=== PATIENT | female | born 1955 | race Caucasian/White ===

== ENCOUNTER 2022-02-08 12:07 | Outpatient (CLI) | payer MEDICARE, OTHER ==
[2022-02-08 17:44] LABS: BASOPHILS # (AUTO) 0.1 10^3/uL (0.0-0.1); BASOPHILS % (AUTO) 1.1 %; EOSINOPHILS # (AUTO) 0.3 10^3/uL (0.0-0.7); EOSINOPHILS % (AUTO) 3.9 %; HCT - HEMATOCRIT 40.8 % (37.0-47.0); HGB - HEMOGLOBIN 12.8 g/dL (12.0-16.0); LYMPHOCYTES # (AUTO) 1.3 10^3/uL (1.5-3.5); LYMPHOCYTES % (AUTO) 19.8 %; MEAN CORPUSCULAR HEMOGLOBIN 29.8 pg (27.0-31.0); MEAN CORPUSCULAR HGB CONC 31.4 g/dL (32.0-36.0); MEAN CORPUSCULAR VOLUME 94.9 fL (81.0-99.0); MEAN PLATELET VOLUME 11.5 fL (7.9-10.8); MONOCYTES # (AUTO) 0.6 10^3/uL (0.0-1.0); MONOCYTES % (AUTO) 9.6 %; NEUTROPHILS # (AUTO) 4.1 10^3/uL (1.5-6.6); NEUTROPHILS % (AUTO) 65.1 %; PLT - PLATELET COUNT 261 10^3/uL (130-450); RED CELL DISTRIBUTION WIDTH 13.2 % (12.0-15.0); WHITE BLOOD COUNT 6.4 x10^3/uL (4.8-10.8)
[2022-02-08 18:02] LABS: CREATININE,URINE 294.4 mg/dL; MICROALBUM/CREATININE RATIO,UR 66.6 ug/mg (<30.0); MICROALBUMIN,URINE 19.6 mg/dL (0-300.0)
[2022-02-08 18:06] LABS: ALBUMIN 3.9 g/dL (3.2-5.5); ALBUMIN/GLOBULIN RATIO 1.4 (1.0-2.2); ALKALINE PHOSPHATASE 75 IU/L (42-121); ALT ALANINE AMINOTRANSFERASE 20 IU/L (10-60); AST ASPARTATE AMINOTRANSFERASE 18 IU/L (10-42); BILIRUBIN,TOTAL 0.8 mg/dL (0.2-1.0); BUN - BLOOD UREA NITROGEN 17 mg/dL (6-20); CARBON DIOXIDE - CO2 32 mmol/L (21-32); CHLORIDE 101 mmol/L (101-111); CHOL/HDL RATIO 3.2 (<4.4); CHOLESTEROL 165 mg/dL; CREATININE 0.9 mg/dL (0.4-1.0); GFR - MDRD 63 (>89); GLUCOSE 191 mg/dL (70-100); HDL CHOLESTEROL 51 mg/dL; LDL CHOLESTEROL,CALCULATED 86 mg/dL; LDL/HDL RATIO 1.7 (<4.4); SODIUM 139 mmol/L (135-145); TOTAL PROTEIN 6.6 g/dL (6.7-8.2); TRIGLYCERIDES 142 mg/dL; VLDL CHOLESTEROL 28 mg/dL
[2022-02-08 18:11] LABS: THYROID STIMULATING HORMONE 2.25 uIU/mL (0.34-5.60)
[2022-02-08 20:56] LABS: ESTIMATED AVERAGE GLUCOSE 140 mg/dL (70-100); HEMOGLOBIN A1c% 6.5 % (4.27-6.07)
== END 2022-02-08 12:08 | disposition home or self-care (01) ==
LOC: LAB.N 12:07
PROVIDERS: ATTEND Nurse Practitioner
DX: I10 Essential (primary) hypertension (principal); E78.5 Hyperlipidemia, unspecified; E11.9 Type 2 diabetes mellitus without complications; R53.83 Other fatigue
CPT/HCPCS: 36415; 80053; 80061; 82043; 82570; 82607; 83036; 83721; 84443; 85025

== ENCOUNTER 2022-04-08 13:58 | Outpatient (CLI) | payer MEDICARE, OTHER ==
[2022-04-08 21:52] VITALS: BP 94/60
--- NOTE | 2022-04-08 21:52 | SLEEP CARE CONSULTATION ---
Information from patient questionnaire entered by Bryant Olivas. I have reviewed and concur with the information entered by Bryant Olivas. This document represents the service I personally performed and the decisions made by me, Jose Young MD, [facility]. History of Present Illness Service Date and Time: 04/08/2022 1358 Reason for Visit: New patient, sleep apnea on CPAP therapy, Other Chief Complaint: reports: Other (UPDATE SUPPLIES ) Snores at night: Yes (WITHOUT MACHINE) Observed to quit breathing while asleep: Yes Sleeps alone due to snoring: No Number of times waking at night: 2-3 Reasons for waking at night: reports: Bathroom, Other (NOISE) Toss, Turn, or Twitch while sleeping: No Recalls having dreams: Yes Usually gets out of bed at: 11AM Feels refreshed in the morning: No Morning headache: Yes (SOMETIMES, RESOLVE WITH MORE SLEEP) Sleepy or fatigued during the day: Yes Ever fallen asleep while driving: Yes Takes day naps: Yes Prior sleep studies: Yes Year and Where: [place], [place] AND [facility] Additional HPI information: I had the pleasure of seeing Ms. Mckeon along with her today regarding obstructive sleep apnea-hypopnea. As you know, she is a 66 year lady who was diagnosed with the sleep-disordered breathing in [place]. Her last sleep study was in [place] in January of 2019. The split-night polysomnogram showed extremely severe obstructive sleep apnea-hypopnea with an AHI of 110.9 and malou oxygen saturation of 77%. She is presently using a ResMed AirSense 10 set at 15 20 cmH2O. It is 2 years old. She uses every night and all night. The compliance data show usage in 89 out of the past 90 nights, averaging 13.6 hours a night. The residual AHI is 5.4 and average air leak is 1.2 L/minute. She wears a Respironics Wisp nasal mask. She gets her supplies from [employer]. She finds the treatment very beneficial. - Parasomnia Symptoms Ever been unable to move upon waking from sleep: No Walks in sleep: No Talks in sleep: Yes Ever acted out dreams in sleep: Yes Ever felt weak in the knees when startled or emotional: No Bothered by creepy, crawly, restless sensations in legs: Yes (SOMETIMES ) Problems with memory or concentration: No Subjective Initial [place] Sleepiness Scale score: 13 (04/03/22) Past Medical History Past Medical History: reports: Congestive Heart Failure, Diabetes, Arthritis, Arrythmia, Anxiety, Depression Social History The patient's occupation is a RE. Patient is and lives in [place]. Have you smoked in the past 12 months: No Alcohol use: No Caffeine use: Yes Caffeine amount and frequency: 1-2 TIMES PER WEEK Family History Family history of sleep disordered breathing: Yes Family Hx Sleep Apnea: Mother: Snoring, Sleep apnea - Untreated, Father: Snoring, Sleep apnea - Untreated, Sibling: Snoring, Sleep apnea - Treated Allergies and Home Medications Drug allergies reviewed: Yes Home medication list reviewed: Yes Review of Systems Weight gain over past 5 years: 35 Weight loss over past 5 years: 30 Cardiovascular: reports: high blood pressure, irregular heart rate or pulse, leg or foot swelling, have to sleep sitting up Respiratory: reports: shortness of breath, wheeze, sputum production Gastrointestinal: reports: abdominal pain Urinary: reports: frequency, urgency Neurological: reports: headaches, gait or balance problems Psychiatric: reports: anxiety, depression Ear/Nose/Throat: reports: nasal congestion, dry mouth/throat, hoarseness, wisdom teeth removed Endocrine: reports: too hot or cold Musculoskeletal: reports: joint pain, neck pain, back pain, joint swelling, muscle pain or cramping, mobility problems Immunologic: reports: sneezing Physical Exam Vital signs obtained and entered by: DIANNE WILKINS Blood Pressure: 94/60 (LEFT LOWER ARM ) Cuff size: regular Heart Rate: 106 O2 Saturation: 95 Height: 5 ft 5 in Weight: 414 lb Body Mass Index: 68.8 BMI Classification: Morbidly Obese Neck circumference: 23 (INCHES ) Mood/affect: Normal HEENT: No craniofacial malformation Nostrils: patent to airflow Turbinates: normal Septum: midline Mouth and throat: narrow oropharynx Soft palate: long Hard palate: normal Uvula visualization: 25% Mallampati Class III Tongue: normal in size Tonsils: small Chin and jaw: normal size and position Neck: normal w/o lymphadenopathy or thyromegaly Heart: regular rate and rhythm Lungs: clear bilaterally Extremities: no edema or clubbing Neurologic: intact Impression and Plan IMPRESSION: 1. Obstructive Sleep Apnea-Hypopnea Syndrome, extremely severe, as previously diagnosed. The patient has good CPAP compliance. The current pressure setting appears effective and comfortable. Her mask fits well. Narrow oropharynx and obesity are common predisposing factors for obstructive sleep apnea-hypopnea syndrome. No adjustment is necessary today. Plan: 1. Prescription made for CPAP supplies through [employer]. 2. Try to lose weight. 3. Return for follow up in a year or earlier if there is any problem. Follow up recommended for: Weight management Visit Type: In Office Time Spent with Patient (minutes): 15 Provider Statement: I spent 100% of the Face to Face Visit with the patient with greater than 50% spent counseling the patient and coordination of care.
== END 2022-04-08 13:59 | disposition home or self-care (01) ==
LOC: SC 13:58
PROVIDERS: ATTEND Internal Medicine Pulmonary Disease
DX: G47.33 Obstructive sleep apnea (adult) (pediatric) (principal); E66.01 Morbid (severe) obesity due to excess calories; Z68.44 Body mass index [BMI] 60.0-69.9, adult
CPT/HCPCS: 99202; G0463; 99212

== ENCOUNTER 2022-05-29 15:20 | Outpatient (CLI) | payer MEDICARE, OTHER ==
[2022-05-29 15:48] LABS: BASOPHILS # (AUTO) 0.1 10^3/uL (0.0-0.1); BASOPHILS % (AUTO) 0.8 %; EOSINOPHILS # (AUTO) 0.3 10^3/uL (0.0-0.7); EOSINOPHILS % (AUTO) 2.7 %; HCT - HEMATOCRIT 43.7 % (37.0-47.0); HGB - HEMOGLOBIN 14.1 g/dL (12.0-16.0); LYMPHOCYTES # (AUTO) 1.8 10^3/uL (1.5-3.5); LYMPHOCYTES % (AUTO) 19.6 %; MEAN CORPUSCULAR HEMOGLOBIN 30.3 pg (27.0-31.0); MEAN CORPUSCULAR HGB CONC 32.3 g/dL (32.0-36.0); MEAN PLATELET VOLUME 10.3 fL (7.9-10.8); MONOCYTES # (AUTO) 0.8 10^3/uL (0.0-1.0); MONOCYTES % (AUTO) 9.1 %; NEUTROPHILS # (AUTO) 6.2 10^3/uL (1.5-6.6); NEUTROPHILS % (AUTO) 67.3 %; PLT - PLATELET COUNT 297 10^3/uL (130-450); RED BLOOD COUNT 4.65 10^6/uL (4.20-5.40); RED CELL DISTRIBUTION WIDTH 14.3 % (12.0-15.0); WHITE BLOOD COUNT 9.2 x10^3/uL (4.8-10.8)
[2022-05-29 16:02] LABS: ALBUMIN 3.9 g/dL (3.2-5.5); ALBUMIN/GLOBULIN RATIO 1.2 (1.0-2.2); BILIRUBIN,TOTAL 1.1 mg/dL (0.2-1.0); CALCIUM 8.8 mg/dL (8.5-10.3); CREATININE 0.9 mg/dL (0.4-1.0); POTASSIUM 4.2 mmol/L (3.5-5.0); TOTAL PROTEIN 7.1 g/dL (6.7-8.2)
--- NOTE | 2022-05-29 16:53 | XRAY Report ---
PROCEDURE: Chest 2 View X-Ray INDICATIONS: COUGH TECHNIQUE: 2 views of the chest were acquired. COMPARISON: None FINDINGS: Surgical changes and devices: None. Lungs and pleura: No pleural effusions or pneumothorax subtle radiopacities are present at the left lung base. The lungs are otherwise clear. Mediastinum: Mediastinal contours are normal. Heart size is normal. Bones and chest wall: No suspicious bony abnormalities. Soft tissues appear unremarkable. IMPRESSION: Subtle left basilar pulmonary radiopacities. Short interval follow-up recommended to ensure resolutio n. Reviewed by: Patricia Alonso MD on 05/29/2022 4:51 PM PST Approved by: Patricia Alonso MD on 05/29/2022 4:51 PM PST Station ID: [id number]
[2022-05-29 21:41] LABS: ESTIMATED AVERAGE GLUCOSE 148 mg/dL (70-100); HEMOGLOBIN A1c% 6.8 % (4.27-6.07)
== END 2022-05-29 15:21 | disposition home or self-care (01) ==
LOC: DI 15:20
PROVIDERS: ATTEND Nurse Practitioner
DX: R91.8 Other nonspecific abnormal finding of lung field (principal); R05.9 Cough, unspecified; E11.9 Type 2 diabetes mellitus without complications
CPT/HCPCS: 36415; 80053; 83036; 85025

== ENCOUNTER 2022-06-07 15:47 | Outpatient (CLI) | payer MEDICARE, OTHER ==
--- NOTE | 2022-06-07 17:07 | XRAY Report ---
PROCEDURE: Chest 2 View X-Ray INDICATIONS: COUGH TECHNIQUE: 2 views of the chest were acquired. COMPARISON: Chest x-ray 05/29/2019 06/07/2022 FINDINGS: Surgical changes and devices: None. Lungs and pleura: Previous retrocardiac opacity remains present. It is minimally less prominent. Mediastinum: Mediastinal contours are normal. Heart size is enlarged. Bones and chest wall: No suspicious bony abnormalities. Soft tissues appear unremarkable. IMPRESSION: Slightly less prominent appearance of retrocardiac opacity. Reviewed by: Ana Cristina Yu MD on 06/07/2022 5:06 PM PST Approved by: Ana Cristina Yu MD on 06/07/2022 5:06 PM [facility] Station ID: [id number]
== END 2022-06-07 15:48 | disposition home or self-care (01) ==
LOC: DI 15:47
PROVIDERS: ATTEND Nurse Practitioner
DX: R05.9 Cough, unspecified (principal)

== ENCOUNTER 2023-04-14 13:08 | Outpatient (CLI) | payer MEDICARE, OTHER ==
--- NOTE | 2023-04-14 22:57 | SLEEP CARE CONSULTATION ---
Information from patient questionnaire entered by Jamison Cortez. I have reviewed and concur with the information entered by Jamison Cortez. This document represents the service I personally performed and the decisions made by me, Jose Young MD, [facility]. History of Present Illness Service Date and Time: 04/14/2023 1308 Reason for follow up: annual (LAST SEEN 03/2022) Equipment type: CPAP (RESMED) Prior sleep studies: Yes Year and Where: [facility] additional information: Ms. Mckeon returned with her today for follow up of nasal CPAP therapy. She was diagnosed to have very severe obstructive sleep apnea-hypopnea syndrome. The patient went to [facility] for the equipment and was fitted with a nasal mask. She reports using the device nightly and all through the night. The compliance report shows usage in 55 nights out of the past 56 nights, averaging 13.4 hours a night. She complained of no particular problem with the device such as soreness on the face, dry nose, epistaxis, nasal congestion or headache. She thinks that the pressure of 15 - 20 cmH2O is comfortable. On the CPAP therapy she notices improvement in her sleep quality, and that she wakes up feeling fresher in the morning and more awake/alert during the day. The [place] Sleepiness Scale score 9. Her notices no snore at all. The average residual AHI is 6.1; and air leak, 7.0 L/min. The 90th percentile pressure is 18.2 cmH2O. Sleep Study - Results Prior sleep studies: Yes Year and Where: [facility] CPAP Compliance Data - Data Reviewed with Patient Average duration of nightly device use: 13HRS 47MIN Compliance rate %: 98 (02/18/23-04/08/23) Current pressure setting (cmH2O): 15-20 Average residual AHI: 6.3 Subjective Initial [place] Sleepiness Scale score: 13 Allergies and Home Medications Drug allergies reviewed: Yes Home medication list reviewed: Yes Review of Systems Review of systems same as previous: Yes Physical Exam Vital signs obtained and entered by: JAMISON Penn MA Blood Pressure: 136/92 (LEFT ARM) Cuff size: long Heart Rate: 88 O2 Saturation: 96 Height: 5 ft 5 in Weight: 413 lb Body Mass Index: 68.7 BMI Classification: Morbidly Obese Impression and Plan IMPRESSION: 1. Obstructive Sleep Apnea-Hypopnea Syndrome, very severe (AHI was 110.9 in [place]), with the patient doing well on nasal CPAP therapy. She has excellent compliance and significant clinical improvement. The current pressure appears effective and comfortable. Overall, she is very satisfied with treatment and plans to continue with it long-term. Because the residual AHI is slightly high, I will raise the pressure range to 16 20 cmH2O. PLAN: 1. Pressure raised to 16 - 20 cmH2O via the modem. 2. Try to lose weight 3. Return in two months for follow up to recheck the residual AHI. 4. Consider a manual CPAP/BiPAP titration study to see if BiPAP would be more effective. Counseling Topics: Weight control Follow up with Sleep Care in: 1-2 months Visit Type: In Office Time Spent with Patient (minutes): 15 Provider Statement: I spent 100% of the Face to Face Visit with the patient with greater than 50% spent counseling the patient and coordination of care.
[2023-04-14 23:01] VITALS: BP 136/92; O2SAT 96
== END 2023-04-14 13:09 | disposition home or self-care (01) ==
LOC: SC 13:08
PROVIDERS: ATTEND Internal Medicine Pulmonary Disease
DX: G47.33 Obstructive sleep apnea (adult) (pediatric) (principal); E66.01 Morbid (severe) obesity due to excess calories; Z68.44 Body mass index [BMI] 60.0-69.9, adult
CPT/HCPCS: 99212; G0463

== ENCOUNTER 2023-05-01 10:22 | Outpatient (CLI) | payer MEDICARE, OTHER ==
--- NOTE | 2023-05-01 20:17 | DEXA Report ---
PROCEDURE: Dexa Forearm INDICATIONS: POST MENOPAUSAL TECHNIQUE: Dual energy x-ray absorptiometry (DXA) was performed on a [employer] System. Regions measure d is the left forearm due to patient's body habitus COMPARISON: None FINDINGS: Left Forearm: Bone Mineral Density 0.932 g/cm/cm, T score 0.5. (T score greater or equal to -1.0: NORMAL) (T score from -1.1 to -2.4: OSTEOPENIA) (T score less than or equal to -2.5 to: OSTEOPOROSIS) Impression: By WHO criteria, this patient has normal bone density. Patients with diagnosis of osteoporosis or osteopenia should have regular bone mineral density assess ment. For those eligible for Medicare, routine testing is allowed once every 2 years. Testing frequ ency can be increased for patients who have rapidly progressing disease or for those who are receivin g medical therapy to restore bone mass. Reviewed by: Vlad Fish MD on 05/01/2023 8:15 PM PST Approved by: Vlad Fish MD on 05/01/2023 8:15 PM PST Station ID: [id number]
== END 2023-05-01 10:23 | disposition home or self-care (01) ==
LOC: DI 10:22
PROVIDERS: ATTEND Nurse Practitioner
DX: Z78.0 Asymptomatic menopausal state (principal)

== ENCOUNTER 2023-05-11 17:12 | Outpatient (CLI) | payer MEDICARE, OTHER | END 2023-05-11 23:59 | disposition short-term general hospital (02) | LOC: EMS 17:12 | DX: S49.91XA Unspecified injury of right shoulder and upper arm, initial encounter (principal); W01.0XXA Fall on same level from slipping, tripping and stumbling without subsequent striking against object, initial encounter; Y92.003 Bedroom of unspecified non-institutional (private) residence as the place of occurrence of the external cause | CPT/HCPCS: A0425; A0427 ==

== ENCOUNTER 2023-09-24 14:29 | Outpatient (CLI) | payer MEDICARE, OTHER ==
--- NOTE | 2023-09-24 17:42 | CT Report ---
Chest WO: 09/24/2023 2:39 PM PDT CLINICAL HISTORY: 68 years of age, Female, LUNG NODULE. COMPARISON: None. TECHNIQUE: A CT scan of the chest was performed. Intravenous contrast media was not administered. Im ages were recorded and evaluated at appropriate window settings. Reformats: axial MIP of the chest, c oronal and sagittal. For radiation dose reduction, the following was used: automated exposure control , adjustment of mA and/or kV according to patient size. FINDINGS: Lungs:1.4 cm area of groundglass opacity in the right lower lobe (4:43). No pleural effusion or pneum othorax. No pulmonary edema or focal consolidation. Soft tissue/mediastinum/heart: Multiple small calcified right thyroid nodule.Heart is normal in size. Severe measured in her calcification. No pericardial effusion.No significant coronary artery calcifi cation. Normal thoracic aorta. No thoracic aortic aneurysm. No mediastinal, hilar, or axillary lymph adenopathy. Visualized portion of the upper abdomen:Thickening of the left adrenal gland with lethargy and nodula rity measuring 3.3 cm, likely representing adrenal adenoma. Bones: Status post right shoulder arthroplasty, partially visualized. Bridging osteophyte of the thor acic spine, consistent with diffuse idiopathetic skeletal hyperostosis. IMPRESSION: 1.4 area of groundglass opacity/nodule in the right lower lobe. Recommendation as below. 2017 Fleischner Society Guidelines for management of incidentally detected subsolid (ground-glass) pu lmonary nodules in patients over 35 years Recommendation for a single subsolid nodule: < 6 mm : No routine follow-up required. >= 6 mm: CT at 6-12 months to confirm persistence, then CT every 2 years up to 5 years. Reviewed by: Sonali Rivero MD on 09/24/2023 5:41 PM PDT Approved by: Sonali Rivero MD on 09/24/2023 5:41 PM PDT Station ID: [id number]
== END 2023-09-24 14:30 | disposition home or self-care (01) ==
LOC: DI 14:29
PROVIDERS: ATTEND Nurse Practitioner
DX: R91.1 Solitary pulmonary nodule (principal)

== ENCOUNTER 2023-10-06 13:16 | Outpatient (CLI) | payer MEDICARE, OTHER ==
--- NOTE | 2023-10-06 13:36 | SLEEP CARE CONSULTATION ---
Information from patient questionnaire entered by Jamison Cortez. I have reviewed and concur with the information entered by Jamison Cortez. This document represents the service I personally performed and the decisions made by me, Jose Young MD, [facility]. History of Present Illness Service Date and Time: 10/06/2023 1316 Reason for follow up: other (2 MONTH F/U) Equipment type: CPAP (RESMED) Prior sleep studies: Yes Year and Where: [facility] additional information: Ms. Mckeon returned today for follow up of nasal CPAP therapy after the pressure was raised 3 months ago for elevated residual AHI. She was diagnosed with very severe obstructive sleep apnea-hypopnea syndrome. I raised her pressure to 16 20 cmH2O. On her last visit, her residual AHI was high at 11 with high central apnea index. She was taking pain medication. Today, her residual AHI came back down to 4.8. Average air leak is 7 L/minute. Sleep Study - Results Prior sleep studies: Yes Year and Where[facility] CPAP Compliance Data - Data Reviewed with Patient Average duration of nightly device use: 12HRS 29MINS Compliance rate %: 100 (08/02/23-09/30/23) Current pressure setting (cmH2O): 16-20 Average residual AHI: 4.8 Subjective Initial [place] Sleepiness Scale score: 13 Current [place] Sleepiness Scale score: 11 (10/06/23) Review of Systems Review of systems same as previous: Yes Physical Exam Vital signs obtained and entered by: JAMISON Penn MA Blood Pressure: 118/82 (RIGHT ) Cuff size: wrist Heart Rate: 98 O2 Saturation: 92 Height: 5 ft 5 in Weight: 407 lb 12.8 oz Body Mass Index: 67.8 BMI Classification: Morbidly Obese Impression and Plan IMPRESSION: 1. Obstructive Sleep Apnea-Hypopnea Syndrome, very severe, well controlled with the pressure setting of 16 20 cmH2O. The temporary rise in the central apnea index was because of the opiate pain medication she was taking. No further adjustment is necessary. PLAN: 1. Continue with autoCPAP set at 16 - 20 cmH2O. 2. Try to lose weight. 3. Return for a follow up in a year or earlier if there is any problem. Counseling Topics: Weight control Follow up with Sleep Care in: 1 year Follow up recommended for: Weight management Visit Type: In Office Other Participants: Spouse/Significant Other Time Spent with Patient (minutes): 15 Provider Statement: I spent 100% of the Face to Face Visit with the patient with greater than 50% spent counseling the patient and coordination of care.
[2023-10-06 13:41] VITALS: BP 118/82; O2SAT 92
== END 2023-10-06 13:17 | disposition home or self-care (01) ==
LOC: SC 13:16
PROVIDERS: ATTEND Internal Medicine Pulmonary Disease
DX: G47.33 Obstructive sleep apnea (adult) (pediatric) (principal); E66.01 Morbid (severe) obesity due to excess calories; Z68.44 Body mass index [BMI] 60.0-69.9, adult
CPT/HCPCS: 99212; G0463

== ENCOUNTER 2023-11-08 08:00 | Outpatient (CLI) | payer MEDICARE, OTHER | END 2023-11-08 23:59 | disposition home or self-care (01) | LOC: LAB.N 08:00 | PROVIDERS: ATTEND Physician Assistant Medical | DX: N30.00 Acute cystitis without hematuria (principal) | CPT/HCPCS: 87077; 87086; 87181 ==